=== PATIENT | female | born 1945 | race Caucasian/White ===

== ENCOUNTER 2017-06-03 18:28 | Inpatient (IN) | payer OTHER ==
[~2017-06-03] VITALS: Ht 165.1 cm; Wt 79.4 kg
--- NOTE | ~2017-06-03 | EKG ---
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 06/04/17 0903 [id number] Derik Costello MD, FACC /EPI
--- NOTE | ~2017-06-03 | EXE ---
[facility] [place] [address] STRESS ECHOCARDIOGRAM Name: HERMINIOESTEBAN KIMBERLY Room #: 303-P [facility] IN M.R.#: [id number] Admission: 06/03/17 Attend Phys: Conor Parada MD Discharge: Date of : 49 Date of Service: 06/04/17 1337 Report #: [id number] THIS REPORT FOR: //name// APPROVED REPORT Exam: Stress Echocardiogram Indication: Chest pain Patient Location: Echo lab Stress Nurse: Wilma Bowens RN Room #: 303 Ht: 5 ft 5 in HR: 63 bpm BP: 146/82 mmHg Medical History Medical History: HTN, Hyperlipidemia Cardiac Risk Factors: HTN, Hyperlipidemia Exercise History: Indeterminate Stress Test Details Stress Test: Exercise stress testing was performed using a Salty protocol. HR Resting HR: 63 bpm Max Heart Rate (APMHR): 150 bpm Max HR Achieved: 151 bpm Target HR (85% APMHR): 127 bpm % of APMHR: 100 Recovery HR: 82 bpm BP Resting BP: 146/82 mmHg Max BP: 212/102 mmHg Recovery BP: 152/76 mmHg ECG Resting ECG: Sinus Rhythm Stress ECG: Sinus Rhythm ST Change: Normal Maximum ST Deviation: 0 mm Arrhythmia: None Recovery ECG: Sinus Rhythm Recovery ST Change: Normal Recovery ST Deviation: 0 mm Clinical Reason for Termination: Maximal effort [facility] [address] [place] [address] STRESS ECHOCARDIOGRAM Name: ESTEBAN DURHAM KIMBERLY Room #: 303-P [facility] IN ..#: [id number] Admission: 06/03/17 Attend Phys: Conor Parada MD Discharge: Date of : 49 Date of Service: 06/04/171336 Report #: [id number] Exercise duration: 6 min 22 sec Highest Stage Achieved: Stage 3: 3.4 mph at 14% grade. Exercise capacity: 7.6 METs Overall Exercise Capacity for Age: Average Angina Score: None Stress ECG Conclusion Clinical: Non-ischemic ECG: Non-ischemic Roman Treadmill Score is 6.0 which is Low risk. Pre-Stress Echo The resting Echocardiogram showed normal left ventricular contractility with an estimated Ejection Fraction of about 55%. Post-Stress Echo The stress Echocardiogram showed normal left ventricular contractility with an estimated Ejection Fraction of about 65%. Clinical Normal augmentation of myocardial wall segments using a 17 segment model. Conclusion Clinical Response: Non-ischemic Exercise Capacity: Average Stress ECG Response: Non-ischemic Stress Echo Images: Non-ischemic Normal stress echocardiogram with maximal exercise stress. <Conclusion> Normal stress echocardiogram with maximal exercise stress. <ELECTRONICALLY SIGNED> By: Derik Costello MD, [facility] 06/04/171336 36 1337 Derik Costello MD, FACC /INF
--- NOTE | ~2017-06-03 | HC ---
[facility] [place] [address] CONSULTATION Name: HERMINIOESTEBAN KIMBERLY Room #: 303-P [facility] IN .R.#: [id number] Admission: 06/03/17 Attend Phys: Conor Parada MD Discharge: 06/04/17 Date of : 49 Report #: [id number] THIS REPORT FOR: //name// CC: Juan Parada REASON FOR CONSULTATION: Chest, abdominal pain. HISTORY OF PRESENT ILLNESS: The patient is a 72-year-old woman with a history of reflux disease and hypertension. She yesterday evening developed left shoulder and left-sided neck pain. This was followed by an epigastric cramping pain and she felt feverish, although did not take her temperature. She had chest discomfort, which she described as someone was on the inside pushing outward. Her pain lasted for about 30-45 minutes. She was seen in the Emergency Department and given an aspirin and nitroglycerin. Did have mild nausea. Ultimately her pain resolved. She denies past cardiac history. She denies heart failure symptoms. Her presenting EKG was normal. No history of near syncope or syncope. ALLERGIES: She is allergic to PERCOCET, which causes hallucination. MEDICATIONS: Include diltiazem, hydrochlorothiazide 25 mg daily, cyclosporine eyedrops. PAST MEDICAL HISTORY: Medical records have been reviewed and include history of hypertension, wisdom tooth extraction, laparoscopic cholecystectomy, right carpal tunnel release, knee surgery. SOCIAL HISTORY: She is nonsmoker, nondrinker. FAMILY HISTORY: Notable for strokes. No history of premature coronary disease. REVIEW OF SYSTEMS: Negative except as that noted above. Of particular note is that she did have a CT of the coronary arteries in May 2013, which was normal. Her calcium score was 0. PHYSICAL EXAMINATION: GENERAL: Reveals a pleasant woman in no distress. She is pain free. VITAL SIGNS: Blood pressure is 137/90, heart rate is 67 and regular, she is afebrile, 5 feet 5 inches tall, 175 pounds. HEENT: There are neither xanthelasma, subcutaneous xanthomata, oral mucosal or digital cyanosis or kyphoscoliosis present. CHEST: Clear to auscultation and percussion. CARDIAC: Regular rate and rhythm with normal S1, S2. No murmurs or rubs. ABDOMEN: Soft and nontender. EXTREMITIES: Without cyanosis, clubbing or edema. Radial pulses are 2+. [facility] [address] [place] [address] CONSULTATION Name: ESTEBAN DURHAM KIMBERLY Room #: 303-P [facility] IN [facility].#: [id number] Admission: 06/03/17 Attend Phys: Conor Praada MD Discharge: 06/04/17 Date of : 49 Report #: [id number] NEUROLOGIC: She is alert with a nonfocal exam. LABORATORY DATA: Sodium is 142, potassium 3.8, creatinine 0.8. Multiple troponin levels are 0. Cholesterol 193, LDL 111. White count 4.4, hemoglobin 12, hematocrit 36, platelet count 228. Chest x-ray is normal. EKG is normal. IMPRESSION: 1. Chest, abdominal and neck pain of uncertain etiology. This has unusual features for ischemia. 2. Previously normal coronary vasculature by CTA in 2013; calcium score of 0. 3. Hypertension. 4. Mild dyslipidemia RECOMMENDATIONS: Stress echocardiogram. My suspicion is low that her presenting symptoms are on the basis of myocardial ischemia. Further thoughts will be forthcoming based on this evaluation. Thank you for asking me to participate in her care. <ELECTRONICALLY SIGNED> By: Derik Costello MD, FACC 06/05/17 0816 [id number] Derik Costello MD, FACC /nt
[2017-06-03 18:28] VITALS: BP 185/91
[~2017-06-03 18:28] MED LIST: CELEBREX 200 M200 MG; DILTIAZEM 24HR360 M1 PO; DILTIAZEM 24HR360 MG PO; ENOXAPARIN30 MG/0.3; HYDROCHLOROTHIA25 M1 PO; HYDROCODONE-AP1 EAC6 PO; MELOXICAM7.5 MG PO; OXYCODONE HCL 55 MG; RANITIDINE 150150 MG PO; RESTASIS1 EACH OPHTHALMIC; TRAMADOL 50 MG50 MG PO; XARELTO10 MG PO
[2017-06-03] MEDS ORDERED: RESTASIS1 EACH OPHTHALMIC (18:51)
[2017-06-03 18:54] LABS: HEMATOCRIT 39.8 % (37.0-47.0); HEMOGLOBIN 13.5 gm/dL (12.0-15.0); MCH 30.8 pg (26.0-34.0); MCHC 33.9 g/dL (28.0-37.0); MCV 90.8 fL (80.0-100.0); RBC 4.38 mil/uL (4.20-5.00); RDW 13.6 % (10.5-14.5); WBC 6.5 thou/uL (4.0-11.0)
[2017-06-03 19:05] LABS: ANION GAP 12 mmol/L (7-16); BUN 20 mg/dL (7-18); CALCIUM 9.5 mg/dL (8.5-10.1); CHLORIDE 101 mmol/L (98-107); CO2 26 mmol/L (21-32); CREATININE 0.9 mg/dL (0.6-1.0); GLUCOSE 105 mg/dL (74-106); POTASSIUM 3.2 mmol/L (3.5-5.1); SODIUM 139 mmol/L (136-145)
[2017-06-03 19:14] LABS: ALBUMIN 4.1 g/dL (3.4-5.0); ALKALINE PHOSPHATASE 126 U/L (46-116); SGOT 27 U/L (15-37); SGPT 24 U/L (30-65); TOTAL BILIRUBIN 0.5 mg/dL (<0.1-1.0); TOTAL PROTEIN 7.6 g/dL (6.4-8.2); TROPONIN-I < 0.04 ng/mL (<0.04-0.07)
[2017-06-03 20:04] VITALS: BP 113/67
[2017-06-03 20:55] VITALS: BP 117/70
[2017-06-03 21:35] VITALS: BP 142/68
[2017-06-03 23:50] VITALS: BP 136/59
[2017-06-04 03:40] VITALS: BP 126/64
[2017-06-04 06:29] LABS: HEMATOCRIT 36.9 % (37.0-47.0); HEMOGLOBIN 12.4 gm/dL (12.0-15.0); MCH 30.6 pg (26.0-34.0); MCHC 33.4 g/dL (28.0-37.0); MCV 91.6 fL (80.0-100.0); RBC 4.03 mil/uL (4.20-5.00); RDW 13.5 % (10.5-14.5); WBC 4.4 thou/uL (4.0-11.0)
[2017-06-04 06:46] LABS: CALCIUM 8.9 mg/dL (8.5-10.1); CREATININE 0.8 mg/dL (0.6-1.0); POTASSIUM 3.8 mmol/L (3.5-5.1)
[2017-06-04 07:50] LABS: CHOLESTEROL 193 mg/dL (<200); HDL CHOLESTEROL 51 mg/dL (>40); LDL CHOLESTEROL 111 mg/dL (<100); TC:HDL 3.8 Ratio (Not establshd); TRIGLYCERIDE 158 mg/dL (<150); TROPONIN-I < 0.04 ng/mL (<0.04-0.07); VLDL 32 mg/dL (<40)
[2017-06-04 08:08] VITALS: BP 137/94
[2017-06-04 14:35] VITALS: BP 137/94
[2017-06-04 15:01] VITALS: BP 137/94
== END 2017-06-04 15:04 | disposition home or self-care (01) | DRG 392 ==
LOC: ER 18:28 → EROBS 19:32 → 3N 19:32
PROVIDERS: Nurse Practitioner Family; Physician Assistant
DX: K21.9 Gastro-esophageal reflux disease without esophagitis (principal); I10 Essential (primary) hypertension; Z96.652 Presence of left artificial knee joint; K08.409 Partial loss of teeth, unspecified cause, unspecified class; E78.5 Hyperlipidemia, unspecified; Z96.641 Presence of right artificial hip joint; E87.6 Hypokalemia; Z79.899 Other long term (current) drug therapy; Z90.49 Acquired absence of other specified parts of digestive tract; Z88.6 Allergy status to analgesic agent; Z82.3 Family history of stroke; Z82.49 Family history of ischemic heart disease and other diseases of the circulatory system
CPT/HCPCS: 10096

== ENCOUNTER → 2017-12-16 | Outpatient (CLI) | payer OTHER | LOC: RAD 09:54 | DX: Z12.31 Encounter for screening mammogram for malignant neoplasm of breast (principal) ==

== ENCOUNTER → 2018-12-27 | Outpatient (CLI) | payer OTHER | LOC: RAD 04:08 | DX: Z12.31 Encounter for screening mammogram for malignant neoplasm of breast (principal) ==

== ENCOUNTER → 2020-03-20 | Outpatient (CLI) | payer OTHER | LOC: BC 08:48 | DX: Z12.31 Encounter for screening mammogram for malignant neoplasm of breast (principal) ==

== ENCOUNTER → 2021-04-25 | Outpatient (CLI) | payer OTHER | LOC: RAD 10:04 | PROVIDERS: ATTEND Family Medicine | DX: Z12.31 Encounter for screening mammogram for malignant neoplasm of breast (principal); N63.10 Unspecified lump in the right breast, unspecified quadrant; N63.20 Unspecified lump in the left breast, unspecified quadrant ==

== ENCOUNTER → 2021-05-02 | Outpatient (CLI) | payer OTHER | LOC: ULTRA 13:09 | PROVIDERS: ATTEND Family Medicine | DX: N63.10 Unspecified lump in the right breast, unspecified quadrant (principal) ==